=== PATIENT | male | born 1995 | race Caucasian/White ===

== ENCOUNTER → 2017-04-14 | Outpatient (REF) | payer OTHER | LOC: M LAB REF 12:48 | PROVIDERS: ATTEND Physician Assistant | DX: J02.9 Acute pharyngitis, unspecified (principal) ==

== ENCOUNTER 2018-11-14 19:24 | Emergency (ER) | payer OTHER ==
[~2018-11-14] VITALS: Ht 182.9 cm; Wt 114.1 kg
[2018-11-14 19:25] VITALS: BP 133/77
[2018-11-14] MEDS ORDERED: FLUORESCEIN OPHTH 1 MG STRIP OS ONE (20:30)
[2018-11-14] MEDS ORDERED: TETRACAINE 0.5% OPHTH SOLN 4ML OS ONE (20:30)
[2018-11-14] MEDS ORDERED: OCUF0.25 OS (20:46)
== END 2018-11-14 21:01 | disposition home or self-care (01) ==
LOC: M ED 19:24
DX: S05.02XA Injury of conjunctiva and corneal abrasion without foreign body, left eye, initial encounter (principal); W22.8XXA Striking against or struck by other objects, initial encounter; Y92.89 Other specified places as the place of occurrence of the external cause; Y93.H2 Activity, gardening and landscaping

== ENCOUNTER 2020-08-21 16:52 | Emergency (ER) | payer OTHER ==
[~2020-08-21] VITALS: Ht 182.9 cm; Wt 132.0 kg
[~2020-08-21 16:52] MED LIST: OCUF0.25 OS
[2020-08-21 16:54] VITALS: BP 137/98
--- NOTE | 2020-08-21 17:28 | REP ---
INDICATION: pain, unk injury. COMPARISON: None. TECHNIQUE: Four views of the left foot are provided. FINDINGS: Four views of the left foot demonstrate normal bones, joints, and soft tissues. No fracture or subluxation is seen. No opaque foreign body noted. IMPRESSION: Negative left foot series. <Electronically signed by Tonio Arcos > 08/21/20 [id number]
== END 2020-08-21 18:27 | disposition home or self-care (01) ==
LOC: M ED 16:52
DX: S93.602A Unspecified sprain of left foot, initial encounter (principal); X58.XXXA Exposure to other specified factors, initial encounter; Y92.9 Unspecified place or not applicable; Y93.9 Activity, unspecified; Y99.9 Unspecified external cause status

== ENCOUNTER 2023-02-21 17:48 | Emergency (ER) | payer OTHER, SELFPAY ==
[~2023-02-21] VITALS: Ht 180.3 cm; Wt 150.5 kg
[2023-02-21] MEDS ORDERED: AUGMENTIN 875 MG TAB PO ONE (19:55)
[2023-02-21] MEDS ORDERED: AMOX875T2 PO (19:59)
[2023-02-21 20:13] VITALS: BP 160/92; TEMP 96.7; O2SAT 99
== END 2023-02-21 20:15 | disposition home or self-care (01) ==
LOC: M ED 17:48
DX: J02.0 Streptococcal pharyngitis (principal); Z79.2 Long term (current) use of antibiotics

== ENCOUNTER 2023-03-13 08:01 | Emergency (ER) | payer SELFPAY ==
[~2023-03-13] VITALS: Ht 180.3 cm; Wt 145.7 kg
[~2023-03-13 08:01] MED LIST changes: +AMOX875T2 PO
[2023-03-13] MEDS ORDERED: dayquil PO (08:10)
[2023-03-13] MEDS ORDERED: IBUP200C29 PO (08:10)
[2023-03-13 09:27] LABS: BASO % 0.2 % (0.0-1.0); EOS # 0.2 10^3/uL (0.0-0.5); EOS % 0.9 % (0.0-3.0); HEMATOCRIT 42.4 % (42.0-52.0); HEMOGLOBIN 13.8 g/dl (13.5-17.5); MEAN CORPUSCULAR HEMOGLOBIN 27.8 pg (27.0-33.0); MEAN CORPUSCULAR HGB CONC 32.5 g/dl (32.0-36.5); MEAN CORPUSCULAR VOLUME 85.3 fl (80.0-96.0); MONO % 8.8 % (2.0-8.0); NEUTROPHILS # 12.8 10^3/uL (1.5-8.5); NEUTROPHILS % 72.6 % (36.0-66.0); PLATELET COUNT, AUTOMATED 385 10^3/uL (150-450); RED BLOOD COUNT 4.97 10^6/uL (4.30-6.10); WHITE BLOOD COUNT 17.7 10^3/uL (4.0-10.0)
[2023-03-13 09:55] LABS: MONO # 1.6 10^3/uL (0.0-0.8); RSV AMPLIFICATION NEGATIVE (NEGATIVE)
[2023-03-13] MEDS ORDERED: ISOVUE-370 76% 100ML VIAL As Ordered ONE (10:02)
[2023-03-13 10:09] LABS: ERYTHROCYTE SEDIMENTATION RATE 60 mm/hr (0-15)
[2023-03-13] MEDS ORDERED: AMPICILLIN SOD/SULBACTAM SOD 1.5 GM in D5W MINI-BAG PLUS 50 ML IV ONE (11:20)
[2023-03-13] MEDS ORDERED: dexAMETHasone 20MG/5ML VIAL IV ONE (11:25)
[2023-03-13] MEDS ORDERED: NS 1,000 ML IV ONE (11:25)
[2023-03-13] MEDS ORDERED: LIDOCAINE W/EPINEPHRINE 1% 20ML VIAL SC ONE (12:50)
[2023-03-13] MEDS ORDERED: ETHYL CHLORIDE AER SPRAY 105 ML TOP STA (12:50)
[2023-03-13] MEDS ORDERED: CETACAINE SPRAY 5GM TOP ONE (14:00)
[2023-03-13] MEDS ORDERED: CLEO300C2 PO (14:44)
[2023-03-13 15:19] VITALS: BP 156/92; TEMP 97.3; O2SAT 99
== END 2023-03-13 15:23 | disposition home or self-care (01) ==
LOC: M ED 08:01
DX: J36 Peritonsillar abscess (principal); F10.10 Alcohol abuse, uncomplicated; Z79.2 Long term (current) use of antibiotics; Z79.1 Long term (current) use of non-steroidal anti-inflammatories (NSAID)
CPT/HCPCS: 70491; 80047; 85025; 85652; 86140; 87070; 87076; 87205; 87631; 96360; 96375; 99284; J0295; J1100; Q9967

== ENCOUNTER 2023-04-09 13:57 | Inpatient (IN) | payer MEDICAID, SELFPAY ==
[~2023-04-09] VITALS: Ht 180.3 cm; Wt 147.3 kg
[~2023-04-09 13:57] MED LIST changes: +CLEO300C2 PO; +IBUP200C29 PO; +dayquil PO
[2023-04-09 19:46] LABS: BASO # 0.1 10^3/uL (0.0-0.2); BASO % 0.4 % (0.0-1.0); EOS # 0.2 10^3/uL (0.0-0.5); EOS % 1.2 % (0.0-3.0); HEMATOCRIT 43.1 % (42.0-52.0); HEMOGLOBIN 14.2 g/dl (13.5-17.5); LYMPH # 3.2 10^3/uL (1.5-5.0); LYMPH % 17.2 % (24.0-44.0); MEAN CORPUSCULAR HEMOGLOBIN 27.8 pg (27.0-33.0); MEAN CORPUSCULAR HGB CONC 32.9 g/dl (32.0-36.5); MEAN CORPUSCULAR VOLUME 84.5 fl (80.0-96.0); MONO # 1.3 10^3/uL (0.0-0.8); MONO % 7.1 % (2.0-8.0); NEUTROPHILS # 13.4 10^3/uL (1.5-8.5); NEUTROPHILS % 73.1 % (36.0-66.0); PLATELET COUNT, AUTOMATED 394 10^3/uL (150-450); WHITE BLOOD COUNT 18.3 10^3/uL (4.0-10.0)
[2023-04-09 20:11] LABS: BLOOD UREA NITROGEN 12 MG/DL (9-23); CALCIUM LEVEL 10.1 MG/DL (8.5-10.1); CARBON DIOXIDE LEVEL 28 MMOL/L (20-31); CHLORIDE LEVEL 104 MMOL/L (98-107); CREATININE FOR GFR 0.65 MG/DL (0.70-1.30); GLOMERULAR FILTRATION RATE > 60.0 (>60); GLUCOSE, FASTING 85 MG/DL (60-100); POTASSIUM SERUM 4.5 MMOL/L (3.5-5.1); SODIUM LEVEL 141 MMOL/L (136-145)
[2023-04-09] MEDS ORDERED: AMPICILLIN SOD/SULBACTAM SOD 3 GM in D5W MINI-BAG PLUS 100 ML IV ONE (20:25)
[2023-04-09] MEDS ORDERED: dexAMETHasone 20MG/5ML VIAL IV ONE (20:25)
[2023-04-09] MEDS ORDERED: ISOVUE-370 76% 100ML VIAL As Ordered ONE (20:38)
[2023-04-09] MEDS ORDERED: HOME MED LIST COMPLETE! XX SCH (22:45)
[2023-04-09] MEDS ORDERED: ACETAMINOPHEN TAB 650MG DOSE (2X325MG) PO PRN (22:45)
[2023-04-09 23:25] VITALS: BP 139/98; TEMP 97.9; O2SAT 96
[2023-04-10] MEDS: NS 1,000 ML IV SCH ×4 (00:43→14:22)
[2023-04-10] MEDS: AMPICILLIN SOD/SULBACTAM SOD 3 GM in D5W MINI-BAG PLUS 100 ML IV SCH ×4 (02:06→20:23)
[2023-04-10 05:00] VITALS: BP 125/72; TEMP 97.7; O2SAT 96
[2023-04-10 05:58] LABS: HEMATOCRIT 41.6 % (42.0-52.0); HEMOGLOBIN 13.6 g/dl (13.5-17.5); MEAN CORPUSCULAR HEMOGLOBIN 27.8 pg (27.0-33.0); MEAN CORPUSCULAR HGB CONC 32.7 g/dl (32.0-36.5); MEAN CORPUSCULAR VOLUME 84.9 fl (80.0-96.0); PLATELET COUNT, AUTOMATED 403 10^3/uL (150-450); WHITE BLOOD COUNT 18.5 10^3/uL (4.0-10.0)
[2023-04-10 06:26] LABS: ALBUMIN 3.3 G/DL (3.2-5.2); ALKALINE PHOSPHATASE 109 U/L (46-116); ALT/SGPT 29 U/L (7.0-40); AST/SGOT 15 U/L (<34); BILIRUBIN,TOTAL 0.3 MG/DL (0.3-1.2); BLOOD UREA NITROGEN 12 MG/DL (9-23); CALCIUM LEVEL 9.5 MG/DL (8.5-10.1); CARBON DIOXIDE LEVEL 25 MMOL/L (20-31); CHLORIDE LEVEL 106 MMOL/L (98-107); CREATININE FOR GFR 0.56 MG/DL (0.70-1.30); GLOMERULAR FILTRATION RATE > 60.0 (>60); GLUCOSE, FASTING 133 MG/DL (60-100); POTASSIUM SERUM 4.4 MMOL/L (3.5-5.1); SODIUM LEVEL 141 MMOL/L (136-145); TOTAL PROTEIN 6.9 G/DL (5.7-8.2)
[2023-04-10 07:38] LABS: INR 1.04; PROTHROMBIN TIME 13.3 SECONDS (12.5-14.5)
[2023-04-10 07:39] LABS: PARTIAL THROMBOPLASTIN TIME 24.2 SECONDS (24.8-34.2)
[2023-04-10] MEDS: ENOXAPARIN 40MG/0.4ML SYRINGE (J1650 PER 10MG) SC SCH (08:00)
[2023-04-10 08:27] LABS: PROCALCITONIN <0.04 ng/ml
[2023-04-10] MEDS: predniSONE 20 MG TAB PO SCH (09:10)
[2023-04-10 14:00] VITALS: BP 133/73; TEMP 98.2; O2SAT 98
[2023-04-10 20:59] VITALS: BP 131/79; TEMP 98.8; O2SAT 97
[2023-04-11] MEDS: AMPICILLIN SOD/SULBACTAM SOD 3 GM in D5W MINI-BAG PLUS 100 ML IV SCH ×2 (02:08→08:21)
[2023-04-11] MEDS: NS 1,000 ML IV SCH (02:09)
[2023-04-11 05:07] VITALS: BP 128/88; TEMP 98.6; O2SAT 95
[2023-04-11 06:23] LABS: BASO % 0.1 % (0.0-1.0); EOS % 0.1 % (0.0-3.0); HEMATOCRIT 37.4 % (42.0-52.0); HEMOGLOBIN 12.1 g/dl (13.5-17.5); LYMPH # 3.3 10^3/uL (1.5-5.0); LYMPH % 14.9 % (24.0-44.0); MEAN CORPUSCULAR HEMOGLOBIN 28.4 pg (27.0-33.0); MEAN CORPUSCULAR HGB CONC 32.4 g/dl (32.0-36.5); MEAN CORPUSCULAR VOLUME 87.8 fl (80.0-96.0); MONO % 9.8 % (2.0-8.0); NEUTROPHILS # 16.2 10^3/uL (1.5-8.5); PLATELET COUNT, AUTOMATED 374 10^3/uL (150-450); RED BLOOD COUNT 4.26 10^6/uL (4.30-6.10)
[2023-04-11 06:48] LABS: BLOOD UREA NITROGEN 11 MG/DL (9-23); CALCIUM LEVEL 8.6 MG/DL (8.5-10.1); CARBON DIOXIDE LEVEL 26 MMOL/L (20-31); CHLORIDE LEVEL 109 MMOL/L (98-107); CREATININE FOR GFR 0.62 MG/DL (0.70-1.30); GLOMERULAR FILTRATION RATE > 60.0 (>60); GLUCOSE, FASTING 104 MG/DL (60-100); POTASSIUM SERUM 4.2 MMOL/L (3.5-5.1); SODIUM LEVEL 144 MMOL/L (136-145)
[2023-04-11 07:00] LABS: MONO # 2.2 10^3/uL (0.0-0.8)
[2023-04-11] MEDS: ENOXAPARIN 40MG/0.4ML SYRINGE (J1650 PER 10MG) SC SCH (08:21)
[2023-04-11] MEDS: predniSONE 20 MG TAB PO SCH (08:21)
[2023-04-11] MEDS ORDERED: AMOX875T2 PO (10:14)
[2023-04-11] MEDS ORDERED: PRED10TA2 PO (10:16)
[2023-04-11] MEDS ORDERED: ACET1TAB55 PO (10:17)
== END 2023-04-11 12:26 | disposition home or self-care (01) | DRG 113 ==
LOC: M ED 13:57 → M ED INP 22:43 → ENRESERV 22:57 → M MSPAV 23:21 → ENRESERV 23:47
PROVIDERS: ADMIT Family Medicine; ATTEND Internal Medicine
DX: J36 Peritonsillar abscess (principal); Z68.42 Body mass index [BMI] 45.0-49.9, adult; E66.9 Obesity, unspecified

== ENCOUNTER 2024-03-05 05:30 | Emergency (ER) | payer MEDICAID ==
[~2024-03-05] VITALS: Ht 180.3 cm; Wt 158.7 kg
[~2024-03-05 05:30] MED LIST changes: +ACET1TAB55 PO; +PRED10TA2 PO
[2024-03-05] MEDS: ACETAMINOPHEN 500 MG TAB PO ONE (06:32)
[2024-03-05] MEDS: KETOROLAC 60MG 2ML VIAL IM ONE (06:32)
[2024-03-05] MEDS ORDERED: KETO10TAB PO (07:13)
[2024-03-05] MEDS ORDERED: ACET-897 PO (07:13)
[2024-03-05 07:26] VITALS: BP 154/77; TEMP 97.5; O2SAT 97
== END 2024-03-05 07:28 | disposition home or self-care (01) ==
LOC: M ED 05:30
DX: K08.89 Other specified disorders of teeth and supporting structures (principal); F10.10 Alcohol abuse, uncomplicated; Z79.1 Long term (current) use of non-steroidal anti-inflammatories (NSAID); Z79.2 Long term (current) use of antibiotics; Z79.52 Long term (current) use of systemic steroids
CPT/HCPCS: 96372; 99283; J1885